=== PATIENT | male | born 1995 | race Caucasian/White ===

== ENCOUNTER 2023-08-10 08:20 | Outpatient (REF) | payer OTHER, SELFPAY ==
[2023-08-10 15:02] LABS: MANUAL DIFF FLAG NO
[2023-08-10 15:10] LABS: Basophils Absolute Auto 0.1 X10*3/uL (0.0-0.2); Basophils Percent Auto 0.8 % (0-2); Eosinophils Absolute Auto 0.3 X10*3/uL (0.0-0.4); Eosinophils Percent Auto 3.5 % (0-4); Hematocrit 43.7 % (42.0-52.0); Hemoglobin 14.4 g/dl (14.0-18.0); Imm Gran Abs Auto 0.01 X10*3/uL (0.00-0.03); Imm Gran Pct Auto 0.1 % (0.0-0.4); Lymphocytes Absolute Auto 2.3 X10*3/uL (1.2-4.9); Lymphocytes Percent Auto 31.2 % (20-40); Mean Platelet Volume 9.5 fL (9.4-12.4); Monocytes Absolute Auto 0.5 X10*3/uL (0.1-1.2); Neutrophils Absolute Auto 4.3 x10*3/uL (2.0-8.3); Neutrophils Percent Auto 57.4 % (45-73); Platelet Count 330 X10*3/uL (160-400); Red Blood Count 5.14 X10*6/uL (4.60-5.80); Red Cell Distribution Width 13.5 % (11.0-16.0); White Blood Count 7.5 X10*3/uL (4.8-10.8)
[2023-08-10 15:59] LABS: Alanine Aminotransferase 29 U/L (0-40); Albumin Level 4.4 g/dL (3.5-5.0); Alkaline Phosphatase 45 U/L (39-117); Anion Gap 12 (12-20); Aspartate Amino Transferase 20 U/L (5-37); Bilirubin Total 0.7 mg/dL (0.0-1.0); Blood Urea Nitrogen 17 mg/dL (9-16); Calcium 9.5 mg/dL (8.4-10.2); Carbon Dioxide 29 mmol/L (22-29); Chloride 105 mmol/L (96-108); Cholesterol 223 mg/dL (<200); Estimated Glomerular Filt Rate > 60; Ferritin 118 ng/mL (20-250); Glucose Fasting 84 mg/dL (60-99); HDL Cholesterol 38 mg/dL (>40); LDL Cholesterol Calculated 165 mg/dL (<100); Sodium 142 mmol/L (135-145); TSH reflex Free T4 1.58 uIU/mL (0.32-4.0); Total Protein 7.6 g/dL (6.5-8.0); Triglycerides 102 mg/dL (<150)
[2023-08-15 17:19] LABS: VITAMIN D (1,25 OH) D3 47 pg/mL; Vit D (1,25-Dihydroxy) Total 47 pg/mL (18-72); Vitamin D (1,25 OH) D2 <8 pg/mL
== END 2023-08-10 08:21 | disposition home or self-care (01) ==
LOC: HO.CHCLDS 08:20
PROVIDERS: Visit Provider Family Medicine
DX: E78.89 Other lipoprotein metabolism disorders (principal); E55.9 Vitamin D deficiency, unspecified; E61.1 Iron deficiency; Z01.89 Encounter for other specified special examinations; Z79.899 Other long term (current) drug therapy
CPT/HCPCS: 36415; 80053; 80061; 82652; 82728; 84443; 85025

== ENCOUNTER 2024-08-18 10:14 | Outpatient (REF) | payer OTHER, SELFPAY ==
[2024-08-18 15:45] LABS: Cholesterol 201 mg/dL (<200); HDL Cholesterol 36 mg/dL (>40); Iron 160 mcg/dL (45-160); LDL Cholesterol Calculated 138 mg/dL (<100); Percent Iron Saturation 53 % (15-50); Total Iron Binding Capacity 301 mcg/dL (228-428); Triglycerides 137 mg/dL (<150); Unsaturated Iron Binding 141 ug/dL
[2024-08-19 08:18] LABS: HIV AB/AG Nonreactive (Nonreactive); HIV Num 1 0.06 S/CO (0.00-0.99); ~HepC Num1 0.16 S/CO (0.00-0.79); ~Hepatitis C Antibody Nonreactive (Nonreactive)
== END 2024-08-18 10:15 | disposition home or self-care (01) ==
LOC: HO.CHCLDS 10:14
PROVIDERS: Visit Provider Family Medicine
DX: Z00.00 Encounter for general adult medical examination without abnormal findings (principal); E61.1 Iron deficiency; E78.5 Hyperlipidemia, unspecified
CPT/HCPCS: 36415; 80061; 83540; 86803; 87389

== ENCOUNTER 2025-10-07 15:46 | Outpatient (REF) | payer OTHER, SELFPAY ==
--- OUTSIDE RECORDS SUMMARY | 2025-10-08 18:37 | XMS_ITS | Encounter Summary ---
Author Organization [employer] Address [address] [facility] [address] [place] [address] Care Team Providers Care Broke Man Name Role Phone Delia Tafoya MD Primary Care Provider [phone] Reason for Visit * Reason Onset Date Comments Referral 01/30/2024 Encounter Details Date Type Department Care Team ([facility] st Contact Info) Description 01/30/2024 Telephone [facility] [address] [place] [address] Delia Tafoya MD [address] [place], [place] [phone] Referral Social History Tobacco Use Types Packs/Day Years Used Date Smoking Tobacco: Never Smokeless Tobacco: Never Depression Answer Date Recorded Patient Health Questionnaire-9 Score 5 07/06/2023 Housing Stability Answer Date Recorded What is your housing situation today? I have stevemitra theodore 10/01/[address] you li ve. Do you have problems with any of the following? None of the above 10/01/2023 Food Insecurity Answer Date Recorded Within the past 12 months, y ou worried that your food would run out before you got money to buy more: Often true 10/01/2023 Within the past 12 months,th e food you bought just didn't last and you didn't have enough money to get more: Often true 04/2023 Transportation Answer Date Recorded In the past 12 months, has l ack of transportation kept you from medical appts, meetings, work or from getting things needed for daily living? No 10/01/2023 Utilities Answer Date Recorded In the past 12 months, has t he electric, gas, oil or water company threatened to shut off services in your home? Yes 09/03/2023 Depression Answer Date Recorded Patient Health Questionnaire-2 Score 1 07/06/2023 Sex and Gender Information Value Date Recorded Sex Assigned at Male 09/25/2022 10:30 AM EDT Legal Sex Male 10:30 AM EDT Gender Identity Male 09/25/2022 10:30 AM EDT Sexual Orientation Straight 09/25/2022 10 :30 AM EDT documented as of this encounter Miscellaneous Notes * Telephone Encounter - Debo Tony RN - 01/30/2024 3:16 PM EST Unable to provide referrals for massage therapy, as well as insurance may not cover such thing. * Telephone Encounter - Alvaro Fairchild - 01/30/2024 10:39 AM EST Tc from patient requesting referral for massage therapy states is feeling a bit tense documented in this encounter Plan of Treatment Not on file documented as of this encounter Visit Diagnoses Not on filedocumented in this encounter Additional Health Concerns Assessment Noted Time PHQ-9 Depression Total Score: 5 07/06/20 23 9:05 AM EDT documented as of this encounter Care Teams Broke Man Relationship Specialty Start Date End Date Delia Tafoya MD [address] [place] [address] PCP - General Family Medicine 02/23/22 SHELL Grewal SOCIAL MEDIA MANAGER Psychiatrist 08/15/23 documented as of this encounter
--- OUTSIDE RECORDS SUMMARY | 2025-10-08 18:37 | XMS_ITS | Encounter Summary ---
Author Organization [employer] Address 75 [facility] 7t [place] [address] Care Team Providers Care Linux Network Engineer Name Role Phone Delia Tafoya MD Primary Care Provider [phone] Reason for Visit * Reason Comments Med Change Request Encounter Details Date Type Department Care Team ([facility] Contact Info) Description 11/10/2024 Refill [facility] [address] [place], [place] [phone] Delia Tafoya MD [address] [place], [place] [phone] Social History Tobacco Use Types Packs/Day Years Used Date Smoking Tobacco: Never Smokeless Tobacco: Never Alcohol Use Standard Drinks/Week Comments Defer 0 (1 standard drink = 0.6 oz pur e alcohol) Depression Answer Date Recorded Patient Health Questionnaire-9 [...] the past 12 months, has t he [employer], [employer], oil or water company threatened to shut [...] AM EDT documented as of this encounter Plan of Treatment Not on file documented as of this encounter Visit Diagnoses Not on filedocumented in this encounter Additional Health Concerns Assessment Noted Time PHQ-9 Depression Total Score: 5 07/06/20 23 9:05 AM EDT documented as of this encounter Care Teams Linux Network Engineer Relationship Specialty Start Date End Date Delia Tafoya MD [address] [place] [address] PCP - General Family Medicine 02/23/22 Marleny Mancia SOLUTION ARCHITECT CORE MAN Psychiatrist 08/15/23 documented as of this encounter
--- OUTSIDE RECORDS SUMMARY | 2025-10-08 18:37 | XMS_ITS | Encounter Summary ---
Author Organization [employer] Address [address] [facility] [address] 7[address] [place] [address] Care Team Providers Care Load Planner Name Role Phone Delia Tafoya MD Primary Care Provider [phone] Reason for Visit * Reason Onset Date Comments rs appt due to overslept and missed ride 025 Encounter Details Date Type Department Care Team ([facility] st Contact Info) Description 09/15/2025 Telephone [facility] [address] [place] [address] Stone Tafoya DDS [address] [place] [address] rs appt due to overslept and missed ride Social History Tobacco Use Types Packs/Day Years Used Date Smoking Tobacco: Never Smokeless Tobacco: Never Alcohol Use Standard Drinks/Week Comments Defer 0 (1 standard drink = 0.6 oz pur e alcohol) Depression Answer Date Recorded Patient Health Questionnaire-9 Score 6 07/20/2025 Patient Health Questionnaire-9 Score 6 07/20/2025 Last PHQ-9: Questionnaire Data Not on file 0 07/20/2025 Housing Stability Answer Date Recorded What is your housing situation today? I have steve theodore 07/10/[address] you li ve. Do you have problems with any of the following? None of the above 07/10/2025 Food Insecurity Answer Date Recorded Within the past 12 months, y ou worried that your food would run out before you got money to buy more: Never True 07/10/2025 Within the past 12 months,th e food you bought just didn't last and you didn't have enough money to get more: Never True Transportation Answer Date Recorded In the past 12 months, has l ack of transportation kept you from medical appts, meetings, work or from getting things needed for daily living? No 07/10/2025 Utilities Answer Date Recorded In the past 12 months, has t he electric, gas, oil or water company threatened to shut off services in your home? No 07/10/2025 Depression Answer Date Recorded Patient Health Questionnaire-2 Score 1 07/20/2025 Internet Access Answer Date Recorded Internet Access Q1 Yes 07/10/2025 Internet Access Q2 Not on file 07/10/2025 Sex and Gender Information Value Date Recorded Sex Assigned at Male 09/25/2022 10:30 AM EDT Legal Sex Male 10:30 AM EDT Gender Identity Male 09/25/2022 10:30 AM EDT Sexual Orientation Straight 09/25/2022 10 :30 AM EDT documented as of this encounter Miscellaneous Notes * Telephone Encounter - Sandi Holland - 09/15/2025 12:12 PM EDT Patient called in at 12:10 cancelling 1pm appointment due to patient overslept and missed ride to go to appointment. Will not make it. Appointment cancelled. Would like to reschedule documented in this encounter Plan of Treatment Not on file documented as of this encounter Visit Diagnoses Not on filedocumented in this encounter Additional Health Concerns Assessment Noted Time PHQ-9 Depression Total Score: 6 07/20/20 25 10:22 AM EDT documented as of this encounter Care Teams Load Planner Relationship Specialty Start Date End Date Delia Tafoya MD [address] [place] [address] PCP - General Family Medicine 02/23/22 SHELL Grewal FORK OPERATOR Psychiatrist 08/15/23 documented as of this encounter
--- OUTSIDE RECORDS SUMMARY | 2025-10-08 18:37 | XMS_ITS | Clinical Summary ---
Author Organization [employer] Address 75 [facility] [address] [place] [address] Care Team Providers Care Quenching Machine Operator Name Role Phone Delia Tafoya MD Primary Care Provider [phone] Allergies Active Allergy Reactions Criticality Noted Date Comments Paclitaxel 08/26/2024 Paroxetine High 03/27/2016 Other reaction(s): Mental Status Change, Unknown Venlafaxine Other 03/27/2016 Other reaction(s): Unknown Medications hydrOXYzine pamoate (Vistaril) 25 MG capsule TAKE 1 CAPSULE BY MOUTH 3 TIMES A DAY NEEDED FOR ANXIETY FOR 2 WEEKS 3 Active hydrOXYzine HCl (Atarax) 10 MG tablet Take 10 mg by mouth if needed each day for anxiety. 4 Active lamoTRIgine (LaMICtal) 150 MG tablet TAKE 1 TABLET BY MOUTH EVERY MORNING WITH A MEAL 4 Active ibuprofen 400 MG tablet Take 500 mg by mouth every 6 (six) hours if needed for moderate pain. Active lamoTRIgine (LaMICtal) 25 MG tablet TAKE 1 TABLET BY MOUTH EVERY MORNING TDD - 175 MG 4 Active cholecalciferol (D3) 50 MCG (2000 UT) tablet Take 2,000 Units by mouth Once per day. 90 tablet 1 4 Active triamcinolone (Kenalog) 0.1 % ointment Apply topically 2 times daily. 60 g 4 Active Colloidal Oatmeal 1 % creamIndications :Eczema, unspecified type Apply 5 g topically 4 times daily. 354 g 3 4 Active fish oil (Roselle-3) 500 MG capsule Take 1 capsule (500 mg) by mouth Once per day. 90 capsule 3 4 Active acetaminophen (Tylenol Extra Strength) 500 MG tabletIndication s:Acute pain of left shoulder Take 2 tablets (1,000 mg) by mouth every 8 (eight) hours if needed for mild pain. 60 tablet 5 Active naproxen (Naprosyn) 500 MG tabletIndication s:Acute pain of left shoulder Take 1 tablet (500 mg) by mouth 2 times daily. 60 tablet 5 Active cetirizine (ZyrTEC) 10 MG tabletIndication s:Seasonal allergies Take 1 tablet (10 mg) by mouth Once per day. 30 tablet 11 5 07/20/20 26 Active mometasone (Nasonex) 50 MCG/ACT nasal spray Administer 2 sprays into each nostril Once per day. 17 g 2 5 09/09/20 26 Active Active Problems Problem Noted Date Diagnosed Date Numbness 09/09/2025 Overweight (BMI 25.0-29.9) 11/10/2024 Plantar fasciitis of left foot 11/10/2024 Assessment & Plan (11/10/2024 3:09 PM EST): Pt was Dx at ED. Advised to continue to use shoe soles for support. Continue to use ibuprofen for Sx. Eczema of both hands 11/10/2024 Assessment & Plan (11/10/2024 3:10 PM EST): Will start triamcinolone, recommended moisturizers (ceramide/petrolateum). Advised to avoid exfoliant to the area. Anxiety 07/06/2023 Overview (07/06/2023): Marleny Mancia, reports also has therapist Assessment & Plan (07/06/2023 9:15 AM EDT): Patient with pressured speech at time of visit. Reports following with therapist and psychiatrist, Dr. King. Ensured patient had crisis number and encouraged to call if exacerbation of symptoms. Eczema 04/08/2019 Mood disorder 04/08/2019 Attention deficit hyperactivity disorder 016 Overview (07/06/2023): Attention deficit hyperactivity disorder Depressive disorder 03/27/2016 Overview (07/06/2023): Depressive disorder Resolved Problems Problem Noted Date Diagnosed Date Resolved Date Dry skin 11/10/2024 11/10/2024 Normal physical examination, routine 08/16/2023 11/10/2024 Assessment & Plan (08/16/2023 3:56 PM EDT): * Healthy 28 y.o. adolescent male Reviewed BMI chart & VS. - will re-check labs lipids in 3 mo - Follow in one year, or sooner PRN. - ER/return precautions discussed. * Vaccines today: - Influenza Anticipatory guidance discussed Encounters Date Type Department Care Team Description 09/15/2025 Telephone [facility] [address] [place] [address] Stone Tafoya DDS rs appt due to overslept and missed ride 09/09/2025 10:45 AM EDT Office Visit [facility] [address] [place] [address] Delia Tafoya MD Plantar fasciitis of left foot (Primary Dx); Numbness; Overweight; Immunization due; Sleep apnea, unspecified type 09/09/2025 Telephone [facility] [address] [place] [address] Delia Tafoya MD Durable Medical Equipment 09/09/2025 Travel 09/08/2025 Telephone [facility] [address] [place] [address] Delia Tafoya MD Chart Prep 09/01/2025 10:00 AM EDT Office Visit [facility] [address] [place] [address] Stone Tafoya DDS 07/28/2025 8:00 AM EDT Office Visit [facility] [address] [place] [address] Stone Tafoya DDS 07/20/2025 10:15 AM EDT Office Visit [facility] [address] [place] [address] Delia Tafoya MD Acute pain of left shoulder (Primary Dx); Dietary counseling; Exercise counseling; Overweight; Seasonal allergies 07/20/2025 Travel 07/10/2025 Patient Outreach [facility] [address] [place] [address] Delia Tafoya MD Pre-visit Planning (SDOH screening negative and Tobacco screening negative) 07/09/2025 8:00 AM EDT Office Visit [facility] [address] [place] [address] Stone Tafoya DDS 07/09/2025 Telephone [facility] [address] [place] [address] Delia Tafoya MD chart prep from Last 3 Months Immunizations Immunization Administration Dates Next Due Influenza injectable quadriv alent preservative free 08/16/2023,06/27/2017,08/30/2016,2013 Influenza, seasonal, injecta ble, preservative free 02/13/2013 Tdap 02/13/2013 Social History Tobacco Use Types Packs/Day Years Used Date Smoking Tobacco: Never Smokeless Tobacco: Never Tobacco Cessation:Counseling Given: Not Answered Alcohol Use Standard Drinks/Week Comments Defer 0 (1 standard drink = 0.6 oz pur e alcohol) Depression Answer Date Recorded Patient Health Questionnaire-9 Score 6 07/20/2025 Patient Health Questionnaire-9 Score 6 07/20/2025 Last PHQ-9: Questionnaire Data Not on file 0 07/20/2025 Housing Stability Answer Date Recorded What is your housing situation today? I have steve sing 07/10/[address] you li [...] Orientation Straight 09/25/2022 10 :30 AM EDT Last Filed Vital Signs Vital Sign Reading Time Taken Comments Blood Pressure 122/77 09/09/2025 10:17 AM EDT Pulse 80 09/09/2025 10:17 AM EDT Temperature 36.8 C (98.2 F) 09/09/2025 10:17 AM EDT Respiratory Rate 20 09/09/2025 10:1 7 AM EDT Oxygen Saturation 98% 09/09/2025 10: 17 AM EDT Inhaled Oxygen Concentration - - Weight 88.4 kg (194 lb 12.8 oz) 025 10:17 AM EDT Height 179 cm (5' 10.47 ) 09/09/2025 10 :17 AM EDT Body Mass Index 27.58 09/09/2025 10:17 AM EDT Plan of Treatment Health Maintenance Due Date Last Done Comments Family Planning (PISQ) 02/07/2008 HPV Vaccines (1 - Male 3-dose series) 02/07/2008 Hepatitis B Vaccines (1 of 3 - 19+ 3-dose series) 02/07/2012 Dental X-Ray: Bitewings 08/27/2025 08/26/20 24, 05/14/2019, 04/29/2018, Additional history exists DTaP/Tdap/Td Vaccines (2 - Td or Tdap) 11/10/2025 02/13/2013 Postponed from 02/13/2023 (Patient Refused) Dental Oral Exam 01/03/2026 07/02/2025, 11/2023, 05/14/2019, Additional history exists Dental Prophylaxis 01/03/2026 07/02/2025, 1 , 04/08/2018, Additional history exists Influenza Vaccine (#1) 2026 3, 06/27/2017, 08/30/2016, Additional history exists Postponed from 07/27/2025 (Patient Refused) SDOH Screening 07/10/2026 07/10/2025 Alcohol/Substance Use Screening 07/20/2026 07/20/2025 Depression Screening 07/20/2026 07/20/2025, 07/20/20 Disability Screening 07/20/2026 07/20/2025 COVID-19 Vaccine ( season) 2026 05/12/2021, 04/14/2021 Postponed from 07/27/2025 (Patient Refused) Tobacco Screening 09/09/2026 09/09/2025 Dental X-Ray: Full Mouth 08/27/2027 024, 10/24/2016, 09/13/2016 Zoster Vaccines (1 of 2) 2043 RSV Patients and Patients Aged 60 years or older (1 - 1-dose 75+ series) 02/07/2068 HIV Screening Completed 08/18/2024 Hepatitis C Screening Completed 08/18/2024 HIB Vaccines Aged Out No longer eligi ble based on patient's age to complete this topic Hepatitis A Vaccines Aged Out No long er eligible based on patient's age to complete this topic IPV Vaccines Aged Out No longer eligi ble based on patient's age to complete this topic Meningococcal B Vaccine Aged Out No l onger eligible based on patient's age to complete this topic Meningococcal Vaccine Aged Out No abiola madison eligible based on patient's age to complete this topic Pneumococcal Vaccine: Pediatrics (0 to 5 Years) and At-Risk Patients (6 to 49) Years Aged Out No longer eligible based on patient's age to complete this topic RSV under 20 months Aged Out No longe r eligible based on patient's age to complete this topic Rotavirus Vaccines Aged Out No longer eligible based on patient's age to complete this topic Procedures Procedure Name Priority Date/Time Associated Diagnosis Comments 8 MIFL RESIN-BASED COMPOSITE - 4 OR MORE SURFACES (ANTERIOR) Routine 09/01/2025 10:00 AM EDT 29 B(V) RESIN-BASED COMPOSITE - 1 SURF, POSTERIOR Routine 09/01/2025 10:00 AM EDT 29 DO RESIN-BASED COMPOSITE - 2 SURF, POSTERIOR Routine 09/01/2025 10:00 AM EDT CASE PRESENTATION, DETAILED AND EXTENSIVE TREATMENT PLANNING Routine 09/01/2025 10:00 AM EDT 18 GINGIVECTOMY/GINGIVOP LASTY TO ALLOW ACCESS FOR RESTORATIVE PROC, PER TOOTH Routine 07/28/2025 8:00 AM EDT CASE PRESENTATION, DETAILED AND EXTENSIVE TREATMENT PLANNING Routine 07/28/2025 8:00 AM EDT 18 MOD RESIN-BASED COMPOSITE - 3 SURF, POSTERIOR Routine 07/28/2025 8:00 AM EDT CASE PRESENTATION, DETAILED AND EXTENSIVE TREATMENT PLANNING Routine 07/09/2025 8:00 AM EDT LIMITED ORAL EVALUATION - PROBLEM FOCUSED Routine 07/09/2025 8:00 AM EDT PROPHYLAXIS - ADULT Routine 07/02/2025 8 :00 AM EDT PERIODIC ORAL EVALUATION - ESTABLISHED PATIENT Routine 07/02/2025 8:00 AM EDT INTRAORAL - COMPLETE SERIES OF RADIOGRAPHIC IMAGES Routine 08/26/2024 8:00 AM EDT HEPATITIS C AB W/REFL TO HCV RNA, QN, PCR Routine 08/18/2024 10:16 AM EDT Normal physical examination, routine HIV 1/2 ANTIGEN/ANTIBODY, FOURTH GENERATION W/RFL Routine 08/18/2024 10:16 AM EDT Normal physical examination, routine from Last 3 Months or Most Recently Relevant to Health Maintenance Results * Hepatitis C Antibody with Reflex to HCV, RNA, Quantitative, Real-Time PCR (08/18/2024 10:16 AM EDT) Hepatitis C Antibody Nonreactive Nonreactive [facility] Comment:Antibodies to HCV no t detected; does not exclude early acuteHCV infection. Blood Venous blood specimen / Unknown 08/18/2024 10:16 AM EDT 08/18/2024 3:15 PM EDT us Delia Tafoya MD LAB BLOOD ORDERABLES Final Re sult Performing Organization Address [facility] Co de Phone Number [facility] [address] [place] [address] [phone] * HIV-1/2 Antigen and Antibodies, Fourth Generation, with Reflexes (08/18/2024 10:16 AM EDT) HIV AB/AG Nonreactive Nonreactive [facility] Comment:HIV-1 p24 Ag and/or HIV-1/HIV-2 Ab not detected.A test result that is nonreactive does not exclude thepossibility of exposure to or infection with HIV-1 and/orHIV-2. Nonreactive results in this assay for individualswith prior exposure to HIV-1 and/or HIV-2 may be due toantigen and antibody levels that are below the limit ofdetection of this assay.The Crunched HIV Ag/Ab Combo assay result andsupplemental assay results should be interpreted inconjunction with the patient's clinical presentation,history and other laboratory results. If the results areinconsistent with clinical evidence, additional testing issuggested to confirm the result. Blood Venous blood specimen / Unknown 08/18/2024 10:16 AM EDT 08/18/2024 3:15 PM EDT us Delia Tafoya MD LAB BLOOD ORDERABLES Final Re sult Performing Organization Address [facility]/ZIP Co de Phone Number [facility] [address] [place] [address] [phone] from Last 3 Months or Most Recently Relevant to Health Maintenance Insurance [employer] ONE CARE < [address] [facility] Care Teams Quenching Machine Operator Relationship Specialty Start Date End Date Delia Tafoya MD [address] [place] [address] PCP - General Family Medicine 02/23/22 Marleny Mancia, PARLOR CHAPERONE FLOTATION TANK OPERATOR Psychiatrist 08/15/23
--- OUTSIDE RECORDS SUMMARY | 2025-10-08 18:37 | XMS_ITS | Clinical Summary ---
Author Organization [facility] Address [address] [place] [address] Phone Care Team Providers Care Plant Operator Helper Name Role Phone Chay Travis Jacksonal Primary Care Provider [phone] Allergies Active Allergy Reactions Criticality Noted Date Comments Effexor (Venlafaxine) Mental Status Change 12/2015 Paxil (Paroxetine Hcl) Mental Status Change 12/2015 Medications triamcinolone acetonide 0.1 % cream Apply topically 2 (two) times a day for 7 days. 15 g Active Active Problems Problem Noted Date Diagnosed Date Depressive disorder 03/27/2016 Overview (12/16/2016): Depressive disorder Attention deficit hyperactivity disorder 016 Overview (12/16/2016): Attention deficit hyperactivity disorder Social History Tobacco Use Types Packs/Day Years Used Date Smoking Tobacco: Never Smokeless Tobacco: Never Education Answer Date Recorded Are you interested in more education? Not on jett e 03/23/2023 Are you concerned about learning? Not on file 03/23/2023 No 03/23/2023 No 03/23/2023 Digital Access Answer Date Recorded No 04/23/2023 No 04/23/2023 No 04/23/2023 Reliable internet access at home? Not on file 04/23/2023 Device with a working camera? Not on file Sex and Gender Information Value Date Recorded Sex Assigned at Male 02/24/2022 6:33 PM EDT Legal Sex Male 9:51 AM EDT Gender Identity Male 02/24/2022 6:33 PM EDT Sexual Orientation Not on file Last Filed Vital Signs Vital Sign Reading Time Taken Comments Blood Pressure 127/74 02/24/2022 6:32 PM EDT Pulse 106 02/24/2022 6:32 PM EDT Temperature 35.8 C (96.4 F) 02/24/2022 6:32 PM EDT Respiratory Rate 18 02/24/2022 6:32 PM EDT Oxygen Saturation 96% 02/24/2022 6:32 PM EDT Inhaled Oxygen Concentration - - Weight - - Height 175.3 cm (5' 9 ) 02/24/2022 6:32 PM EDT Body Mass Index - - Plan of Treatment Not on file Medical Devices Not on file Insurance MEDICARE PART A & B [facility]ARE MEDICARE REPLACEMENT MEDICARE PART A & B Member Subscriber Plan / Payer (Ef fective 2019-Present) Name:FamiliaRodney Member ID:[id number] Relation to Subscriber:Self Name:Milind Barbosan Dash Subscriber ID:[id number] Payer ID:[id number] Group ID:Not on file Type:Medicare Address: [employer] [address] [place] [phone] [place] [address] CARE MEDICARE REPLACEMENT PRERNA BHAKTA [facility] MEDICARE PART A & B [facility] CARE MEDICARE REPLACEMENT MEDICARE PART A & B CARE MEDICARE REPLACEMENT MEDICARE PART A & B CARE MEDICARE REPLACEMENT MEDICARE PART A & B [facility]ARE MEDICARE REPLACEMENT MEDICARE PART A & B Member Subscriber Plan / Payer (Ef fective 2019-Present) Name:Rodney Barbosa Member ID:[id number] Relation to Subscriber:Self Name:Rodney Barbosa Subscriber ID:[id number] Payer ID:[id number] Group ID:Not on file Type:Medicare Address: [employer] [address] [id number] MEDICARE PART A & B [facility] [place]ARE [place] [id number] MEDICARE PART A & B [facility] ONE CARE [place] [address] [place] [id number] Care Teams Plant Operator Helper Relationship Specialty Start Date End Date Travis Cartwright DO [address] [place] [address] PCP - General 12/13/16 Additional Source Comments The information contained in this document represents components of the legal health record. It is not the complete legal health record.[facility]
== END 2025-10-07 15:47 | disposition home or self-care (01) ==
LOC: HO.HOSX 15:46
PROVIDERS: Visit Provider Physician Assistant
DX: Z13.89 Encounter for screening for other disorder (principal)

== ENCOUNTER 2025-10-09 09:00 | Outpatient (REF) | payer OTHER, SELFPAY | END 2025-10-09 09:01 | disposition home or self-care (01) | LOC: HO.HOSX 09:00 | PROVIDERS: Visit Provider Physician Assistant | DX: Z13.89 Encounter for screening for other disorder (principal) ==